=== PATIENT | female | born 1985 | race Caucasian/White ===

== ENCOUNTER 2018-06-07 18:36 | Emergency (ER) | payer SELFPAY ==
[~2018-06-07] VITALS: Ht 162.6 cm; Wt 65.9 kg
[2018-06-07 18:40] VITALS: Ht 162.6 cm; Wt 65.9 kg
[2018-06-07] MEDS ORDERED: NAPROSYN500 MG PO (21:24)
[2018-06-07] MEDS ORDERED: CYCLOBENZAPRINE10 MG PO (21:24)
[2018-06-07 21:51] VITALS: BP 100/77
== END 2018-06-07 21:52 | disposition home or self-care (01) ==
LOC: D.ER 18:36
DX: S06.0X9A Concussion with loss of consciousness of unspecified duration, initial encounter (principal); W10.9XXA Fall (on) (from) unspecified stairs and steps, initial encounter; Y93.89 Activity, other specified; Y92.019 Unspecified place in single-family (private) house as the place of occurrence of the external cause; S93.401A Sprain of unspecified ligament of right ankle, initial encounter; S16.1XXA Strain of muscle, fascia and tendon at neck level, initial encounter; R51 Headache; M25.562 Pain in left knee; M25.571 Pain in right ankle and joints of right foot

== ENCOUNTER 2018-06-13 01:49 | Emergency (ER) | payer BC ==
[~2018-06-13] VITALS: Ht 162.6 cm; Wt 63.6 kg
[~2018-06-13 01:49] MED LIST: CYCLOBENZAPRINE10 MG PO; NAPROSYN500 MG PO
[2018-06-13 01:52] VITALS: Ht 162.6 cm; Wt 63.6 kg
[2018-06-13] MEDS ORDERED: NORCO 7.5/325 T1 TA1 PO (02:18)
[2018-06-13 02:52] VITALS: BP 110/78
== END 2018-06-13 02:56 | disposition home or self-care (01) ==
LOC: D.ER 01:49
DX: S99.911A Unspecified injury of right ankle, initial encounter (principal); W10.9XXA Fall (on) (from) unspecified stairs and steps, initial encounter; Y93.89 Activity, other specified; Y92.019 Unspecified place in single-family (private) house as the place of occurrence of the external cause; M25.571 Pain in right ankle and joints of right foot

== ENCOUNTER 2018-10-12 16:58 | Inpatient (IN) | payer BC ==
[~2018-10-12] VITALS: Ht 162.6 cm; Wt 63.5 kg
[~2018-10-12 16:58] MED LIST changes: +NORCO 7.5/325 T1 TA1 PO
[2018-10-12 17:46] LABS: BASOPHILS 0.5 % (0-2); EOSINOPHILS 4.2 % (0-7); HEMATOCRIT 39.9 % (36.0-48.0); IMMATURE GRANULOCYTES 0.1 % (0-5); LYMPHOCYTES 29.2 % (15-50); MCH 31.5 pg (26.0-34.0); MCHC 35.1 g/dL (31.0-37.0); MCV 89.9 fL (80.0-100.0); MEAN PLATELET VOLUME 10.1 fL (7.4-10.4); MONOCYTES 6.5 % (2-11); NEUTROPHILS 59.5 % (40-80); PLATELET COUNT 258 10x3/uL (130-400); RBC 4.44 10x6/uL (4.00-5.40); RDW 12.5 % (11.5-14.5); WBC 7.6 10x3/uL (4.8-10.8)
[2018-10-12 18:30] LABS: ALBUMIN 3.7 g/dL (3.4-5.0); ALKALINE PHOSPHATASE 68 U/L (46-116); ALT (SGPT) 13 U/L (10-68); BILIRUBIN - TOTAL 0.63 mg/dL (0.2-1.3); CALC OSMOLALITY 273 mosm/kg (275-300); CALCIUM 9.1 mg/dL (8.5-10.1); CARBON DIOXIDE 25.2 mmol/L (21.0-32.0); CHLORIDE - SERUM 103 mmol/L (98-107); CREATININE - SERUM 0.7 mg/dL (0.6-1.3); GLUCOSE 96 mg/dL (74-106); POTASSIUM - SERUM 4.1 mmol/L (3.5-5.1); PROTEIN - SERUM 7.4 g/dL (6.4-8.2); SODIUM 138 mmol/L (136-145); UREA NITROGEN 6 mg/dL (7-18); eGFR NON AFRICAN AMERICAN > 90 mL/min (90-120)
[2018-10-12 18:45] LABS: AMYLASE - SERUM 64 U/L (25-115); CKMB 0.1 U/L (0.0-3.6); CREATINE KINASE 102 UL (21-215); LIPASE 70 U/L (73-393)
[2018-10-12 18:47] LABS: TROPONIN-I < 0.017 ng/mL (0.000-0.060)
[2018-10-12 19:01] LABS: APPEARANCE CLEAR (CLEAR); BILIRUBIN NEGATIVE (NEGATIVE); COLOR YELLOW (YELLOW); GLUCOSE NEGATIVE (NEGATIVE); KETONE NEGATIVE (NEGATIVE); NITRITE NEGATIVE (NEGATIVE); PROTEIN NEGATIVE (NEGATIVE); UROBILINOGEN NORMAL (NORMAL)
[2018-10-12 19:02] LABS: BACTERIA FEW /hpf (NONE SEEN); HCG URINE NEGATIVE (NEGATIVE); RED CELLS - URINE 0-5 /hpf (0-5); WHITE CELLS - URINE OCC /hpf (0-5)
--- NOTE | 2018-10-12 19:08 | NUR ---
PT REPORT RECEIVED FROM PEYTON MOLINA USING SBAR COMMUNICATION. NO ACUTE DISTRESS NOTED, DENIES ANY NEEDS AT PRESENT
[2018-10-12 21:38] LABS: BASOPHILS 0.4 % (0-2); EOSINOPHILS 2.5 % (0-7); HEMATOCRIT 38.7 % (36.0-48.0); HEMOGLOBIN 13.4 g/dL (12-16); IMMATURE GRANULOCYTES 0.1 % (0-5); LYMPHOCYTES 29.6 % (15-50); MCH 31.1 pg (26.0-34.0); MCHC 34.6 g/dL (31.0-37.0); MCV 89.8 fL (80.0-100.0); MEAN PLATELET VOLUME 10.1 fL (7.4-10.4); MONOCYTES 5.6 % (2-11); NEUTROPHILS 61.8 % (40-80); PLATELET COUNT 239 10x3/uL (130-400); RBC 4.31 10x6/uL (4.00-5.40); RDW 12.4 % (11.5-14.5)
[2018-10-12 21:42] LABS: WBC 10.9 10x3/uL (4.8-10.8)
--- NOTE | 2018-10-12 22:05 | NUR ---
PT TRANSPORTED WITH NS @ 100ML/HR, PROTONIX @ 10ML/HR
--- NOTE | 2018-10-12 23:30 | NUR ---
PT REPORTS MILD BURNING PAIN IN ABDOMEN. WARM PAD BROUGHT PER REQUEST.
[2018-10-12 23:47] VITALS: BP 122/81
[2018-10-13 00:53] VITALS: BP 122/81; BMI 24.0
[2018-10-13 04:00] VITALS: BP 128/82
[2018-10-13 04:57] LABS: BASOPHILS 0.5 % (0-2); EOSINOPHILS 3.5 % (0-7); HEMATOCRIT 37.2 % (36.0-48.0); HEMOGLOBIN 12.8 g/dL (12-16); IMMATURE GRANULOCYTES 0.1 % (0-5); LYMPHOCYTES 32.7 % (15-50); MCH 31.3 pg (26.0-34.0); MCHC 34.4 g/dL (31.0-37.0); MEAN PLATELET VOLUME 10.6 fL (7.4-10.4); MONOCYTES 8.1 % (2-11); NEUTROPHILS 55.1 % (40-80); PLATELET COUNT 207 10x3/uL (130-400); RBC 4.09 10x6/uL (4.00-5.40); RDW 12.5 % (11.5-14.5); WBC 10.9 10x3/uL (4.8-10.8)
[2018-10-13 05:05] LABS: INR 2.73 (0.85-1.17); PROTIME 28.2 SECONDS (11.6-15.0)
[2018-10-13 05:12] LABS: CALC OSMOLALITY 277 mosm/kg (275-300); CALCIUM 8.1 mg/dL (8.5-10.1); CARBON DIOXIDE 21.7 mmol/L (21.0-32.0); CHLORIDE - SERUM 107 mmol/L (98-107); CREATININE - SERUM 0.6 mg/dL (0.6-1.3); GLUCOSE 77 mg/dL (74-106); SODIUM 141 mmol/L (136-145); UREA NITROGEN 6 mg/dL (7-18); eGFR NON AFRICAN AMERICAN > 90 mL/min (90-120)
--- NOTE | 2018-10-13 07:35 | NUR ---
PT AAOX4 RESP EVEN AND NONLABORED, NO SIGNS OF DISTRESS NOTED, WILL CONTINUE TO MONITOR, CL IN REACH
[2018-10-13 08:37] VITALS: BP 100/60
[2018-10-13 10:24] VITALS: BMI 24.0
[2018-10-13 12:23] LABS: APTT 42.7 SECONDS (22.8-39.4); INR 2.87 (0.85-1.17); PROTIME 29.3 SECONDS (11.6-15.0)
[2018-10-13 12:26] VITALS: BP 110/62
--- NOTE | 2018-10-13 14:29 | MORECARE ---
CASE MANAGEMENT DISCHARGE SUMMARY PATIENT: DAKOTA PUCKTET UNIT: [id number] ADM DATE: 10/12/18 AGE: 33 : [birth year] SEX: F ROOM/BED: D.2201 AUTHOR: AP GUZMAN PHYSICIAN: REFERRING PHYSICIAN: ANGELINA WILLARD MD DATE OF SERVICE: 10/13/18 Discharge Plan Patient Name: DAKOTA PUCKETT Facility: [facility]:[place] : 1985 Planned Disposition: Anticipated Discharge Date: Discharge Date: Expected LOS: Initial Reviewer: [email or web address] Initial Review Date: 10/13/2018 Generated: 10/13/18 3:29 pm Patient Name: DAKOTA PUCKETT Page 28851 at 3643 All edits/amendments must be made on the electronic document DICTATION DATE: 10/13/18 1428 CITY DISTRIBUTION CLERK: EDD 10/13/18 1428 RPT#: [id number] DC DATE: STATUS: ADM IN [facility] [address] [place] [address] END OF REPORT
[2018-10-13 15:14] LABS: APTT 29.1 SECONDS (22.8-39.4); INR 1.19 (0.85-1.17); PROTIME 14.6 SECONDS (11.6-15.0)
[2018-10-13 16:26] LABS: % SATURATION 15 % (15-55); IRON 36 ug/dl (35-150); TOTAL IRON BIND CAPACITY 237 ug/dl (260-445); UNSAT IRON BIND CAPACITY 201 ug/dl (150-375)
--- NOTE | 2018-10-13 16:27 | NUR ---
RESTING QUIETLY IN BED. DENIES NEEDS.
[2018-10-13 16:39] LABS: CHOL - HDL RATIO 2.5 ratio (2.3-4.1); LDL-HDL RATIO 1.2 ratio (1.5-3.5); PRE-ALBUMIN 19.1 mg/dL (18.0-35.7)
[2018-10-13 17:21] VITALS: BP 129/67
[2018-10-13 20:00] VITALS: BP 106/60
--- NOTE | 2018-10-14 03:12 | NUR ---
A/OX4. BREATHING EVEN AND UNLABORED. AT BEDSIDE. DENIES NEEDS AT THIS TIME. WILL CONTINUE POC.
[2018-10-14 04:00] VITALS: BP 100/60
[2018-10-14 04:33] LABS: BASOPHILS 0.7 % (0-2); HEMOGLOBIN 11.5 g/dL (12-16); IMMATURE GRANULOCYTES 0.1 % (0-5); LYMPHOCYTES 36.4 % (15-50); MCH 31.3 pg (26.0-34.0); MCHC 34.8 g/dL (31.0-37.0); MCV 89.9 fL (80.0-100.0); MEAN PLATELET VOLUME 10.5 fL (7.4-10.4); MONOCYTES 8.8 % (2-11); PLATELET COUNT 200 10x3/uL (130-400); RBC 3.67 10x6/uL (4.00-5.40); RDW 12.5 % (11.5-14.5); WBC 8.7 10x3/uL (4.8-10.8)
[2018-10-14 04:48] LABS: INR 1.14 (0.85-1.17); PROTIME 14.1 SECONDS (11.6-15.0)
[2018-10-14 04:55] LABS: ALKALINE PHOSPHATASE 49 U/L (46-116); BILIRUBIN - TOTAL 0.19 mg/dL (0.2-1.3); CALCIUM 7.4 mg/dL (8.5-10.1); CARBON DIOXIDE 24.4 mmol/L (21.0-32.0); CHLORIDE - SERUM 109 mmol/L (98-107); CREATININE - SERUM 0.6 mg/dL (0.6-1.3); GLUCOSE 93 mg/dL (74-106); POTASSIUM - SERUM 3.8 mmol/L (3.5-5.1); SODIUM 141 mmol/L (136-145); eGFR NON AFRICAN AMERICAN > 90 mL/min (90-120)
[2018-10-14 05:14] LABS: ALBUMIN 2.6 g/dL (3.4-5.0); ALT (SGPT) 9 U/L (10-68); CALC OSMOLALITY 279 mosm/kg (275-300); PROTEIN - SERUM 5.4 g/dL (6.4-8.2); UREA NITROGEN 9 mg/dL (7-18)
[2018-10-14 08:00] VITALS: BP 108/70
--- NOTE | 2018-10-14 11:14 | MORECARE ---
CASE MANAGEMENT DISCHARGE SUMMARY PATIENT: DAKOTA PUCKETT UNIT: [id number] ADM DATE: 10/12/18 AGE: 33 : [birth year] SEX: F ROOM/BED: D.2201 AUTHOR: AP GUZMAN PHYSICIAN: REFERRING PHYSICIAN: ANGELINA WILLARD MD DATE OF SERVICE: 10/14/18 Discharge Plan Patient Name: DAKOTA PUCKETT Facility: [facility]:[place] : 1985 Planned Disposition: Home Anticipated Discharge Date: Discharge Date: Expected LOS: Initial Reviewer: [email or web address] Initial Review Date: 10/13/2018 Generated: 10/14/18 12:14 pm Comments DCP- Discharge Planning Updated by [email or web address]: Dayna Jones on 10/14/18 10:[address] Patient Name: DAKOTA PUCKETT Admission Status: ER Accout number: [id number] Admission Date: 10-12-2018 : 1985 Admission Diagnosis: Attending: ANGELINA WILLARD Current LOS: 2 Anticipated DC Date: Planned Disposition: Home Primary Insurance: [employer] [facility] Discharge Planning Comments: CM MET WITH PATIENT REGARDING DC PLANNING/NEEDS. PATIENT STATES IS NORMALLY IN GOOD HEALTH, DENIES ANY NEEDS AT THIS TIME. CM WILL FOLLOW AND ASSIST NEEDED WITH DC PLANNING/NEEDS. Money Market Dealer: Dayna Jones DCPIA - Discharge Planning Initial Assessment Updated by [email or web address]: Dayna Jones on 10/14/18 11:12 am * Is the patient Alert and Oriented? Yes * PCP JOCELYNE * Pharmacy [facility] [address] OR [facility] * Preadmission Environment Home with Family * ADLs Independent * Equipment None * List name and contact numbers for known caregivers / representatives who currently or will assist patient after discharge: MATEO, , * Community resources currently utilized None * Additional services required to return to the preadmission environment? No * Can the patient safely return to the preadmission environment? Yes * Has this patient been hospitalized within the prior 30 days at any hospital? No Last DP export: 10/13/18 1:29 pm Patient Name: DAKOTA PUCKETT Page [id number] at 1114 All edits/amendments must be made on the electronic document DICTATION DATE: 10/14/181113 CLOTHES WRINGER: EDD 10/14/18 1114 RPT#: [id number] DC DATE: STATUS: ADM IN [facility] [address] [place] [address] END OF REPORT
[2018-10-14 12:00] VITALS: BP 103/67
[2018-10-14 12:53] VITALS: Ht 162.6 cm; Wt 63.5 kg
--- NOTE | 2018-10-14 13:20 | NUR ---
A/O X4. RESTING QUIETLY IN BED. LIGHTS OFF, EYES OPEN. RESPIRATIONS EVEN AND UNLABORED. NO SIGNS OF DISTRESS NOTED. NO COMPLAINTS VOICED. CALL LIGHT AND BEDSIDE TABLE IN REACH. BED IN LOWEST POSITION. ROOM FREE OF CLUTTER. WILL CONTINUE TO MONITOR.
[2018-10-14] MEDS ORDERED: HYDROCODON-ACE1 EAC7 PO (14:40)
[2018-10-14] MEDS ORDERED: PROTONIX20 MG PO (14:41)
[2018-10-15 07:21] LABS: HEPATITIS C ANTIBODY <0.1 S/CO RAT (0.0-0.9)
[2018-10-15 12:10] LABS: ALPHA FETOPROTEIN -(TUMOR MRK) 0.9 ng/mL (0.0-8.3); EBV - EARLY ANTIGEN AB IGG <9.0 U/mL (0.0-8.9); EBV - NUCLEAR ANTIGEN AB IGG >600.0 U/mL (0.0-17.9); EBV VIRAL CAPSID AB IGG >600.0 U/mL (0.0-17.9); EBV VIRAL CAPSID AB IGM <36.0 U/mL (0.0-35.9)
[2018-10-17 12:11] LABS: SMOOTH MUSCLE ABS (ACTIN) 13 Units (0-19)
--- NOTE | 2018-10-17 12:55 | MORECARE ---
CASE MANAGEMENT DISCHARGE SUMMARY PATIENT: DAKOTA PUCKETT UNIT: [id number] ADM DATE: 10/12/18 AGE: 33 : 83 SEX: F ROOM/BED: D.2201 AUTHOR: AP GUZMAN PHYSICIAN: REFERRING PHYSICIAN: ANGELINA WILLARD MD DATE OF SERVICE: 10/17/18 Discharge Plan Patient Name: DAKOTA PUCKETT Facility: [facility]:[place] : 1985 Planned Disposition: Home Anticipated Discharge Date: Discharge Date: 10/14/2018 Expected LOS: Initial Reviewer: [email or web address] Initial Review Date: 10/13/2018 Generated: 10/17/18 1:55 pm Comments DCP- Discharge Planning Updated by [email or web address]: Dayna Jones on 10/14/18 10:[address] Patient Name: DAKOTA PUCKETT Admission Status: ER Accout number: [id number] Admission Date: 10-12-2018 : 1985 Admission Diagnosis: Attending: ANGELINA WILLARD Current LOS: 2 Anticipated DC Date: Planned Disposition: Home Primary Insurance: [employer] [facility] Discharge Planning Comments: CM MET WITH PATIENT REGARDING DC PLANNING/NEEDS. PATIENT STATES IS NORMALLY IN GOOD HEALTH, DENIES ANY NEEDS AT THIS TIME. CM WILL FOLLOW AND ASSIST NEEDED WITH DC PLANNING/NEEDS. Plush Weaver: Dayna Jones DCPIA - Discharge Planning Initial Assessment Updated by [email or web address]: Dayna Jones on 10/14/18 11:12 am * Is the patient Alert and Oriented? Yes * PCP JOCELYNE * Pharmacy [facility] [address] OR [facility] * Preadmission Environment Home with Family * ADLs Independent * Equipment None * List name and contact numbers for known caregivers / representatives who currently or will assist patient after discharge: MATEO, , * Community resources currently utilized None * Additional services required to return to the preadmission environment? No * Can the patient safely return to the preadmission environment? Yes * Has this patient been hospitalized within the prior 30 days at any hospital? No Last DP export: 10/14/18 10:14 am Patient Name: DAKOTA PUCKETT Page 00284 at 1255 All edits/amendments must be made on the electronic document DICTATION DATE: 10/17/18 1255 PORTABLE SAWMILL OPERATOR: EDD 10/17/18 1255 RPT#: [id number] DC DATE:10/14/18 STATUS: DIS IN [facility] [address] [place] [address] END OF REPORT
[2018-10-17 13:13] LABS: HELICOBACTER PYLORI IGM AB <9.0 units (0.0-8.9)
== END 2018-10-14 15:33 | disposition home or self-care (01) | DRG 384 ==
LOC: D.ER 16:58 → D.MS 21:24 → D.EDHOLD 21:24 → D.MS 21:33
PROVIDERS: Family Medicine; Internal Medicine Gastroenterology; ADMIT Internal Medicine Nephrology
PROC: 0DJ08ZZ Inspection of Upper Intestinal Tract, Via Natural or Artificial Opening Endoscopic (ICD-10-PCS; principal; 2018-10-13 12:30)
DX: K26.9 Duodenal ulcer, unspecified as acute or chronic, without hemorrhage or perforation (principal); K92.0 Hematemesis; K20.9 Esophagitis, unspecified; K29.70 Gastritis, unspecified, without bleeding; K29.80 Duodenitis without bleeding; E61.1 Iron deficiency; Z87.891 Personal history of nicotine dependence

== ENCOUNTER 2019-05-02 18:06 | Emergency (ER) | payer BC ==
[~2019-05-02] VITALS: Ht 162.6 cm; Wt 61.4 kg
[~2019-05-02 18:06] MED LIST changes: +HYDROCODON-ACE1 EAC7 PO; +PROTONIX20 MG PO
[2019-05-02 18:09] VITALS: Ht 162.6 cm; Wt 61.4 kg
[2019-05-02] MEDS ORDERED: ZYRTEC10 MG PO (18:12)
[2019-05-02 19:09] LABS: BASOPHILS 0.6 % (0-2); EOSINOPHILS 3.6 % (0-7); HEMATOCRIT 37.5 % (36.0-48.0); HEMOGLOBIN 13.4 g/dL (12-16); IMMATURE GRANULOCYTES 0.2 % (0-5); LYMPHOCYTES 29.6 % (15-50); MCH 31.8 pg (26.0-34.0); MCHC 35.7 g/dL (31.0-37.0); MCV 89.1 fL (80.0-100.0); MEAN PLATELET VOLUME 9.9 fL (7.4-10.4); MONOCYTES 7.6 % (2-11); NEUTROPHILS 58.4 % (40-80); RBC 4.21 10x6/uL (4.00-5.40); RDW 12.3 % (11.5-14.5); WBC 8.7 10x3/uL (4.8-10.8)
[2019-05-02 19:11] LABS: APPEARANCE CLEAR (CLEAR); BILIRUBIN NEGATIVE (NEGATIVE); COLOR YELLOW (YELLOW); GLUCOSE NEGATIVE (NEGATIVE); KETONE NEGATIVE (NEGATIVE); NITRITE NEGATIVE (NEGATIVE); PLATELET COUNT 246 10x3/uL (130-400); PROTEIN NEGATIVE (NEGATIVE); UROBILINOGEN NORMAL (NORMAL)
[2019-05-02 19:22] LABS: APTT 26.1 SECONDS (22.8-39.4); INR 1.12 (0.85-1.17); PROTIME 13.9 SECONDS (11.6-15.0)
[2019-05-02 19:30] LABS: ALBUMIN 3.5 g/dL (3.4-5.0); ALKALINE PHOSPHATASE 67 U/L (46-116); ALT (SGPT) 11 U/L (10-68); BILIRUBIN - TOTAL 0.65 mg/dL (0.2-1.3); CALC OSMOLALITY 276 mosm/kg (275-300); CALCIUM 8.4 mg/dL (8.5-10.1); CARBON DIOXIDE 27.1 mmol/L (21.0-32.0); CHLORIDE - SERUM 105 mmol/L (98-107); CREATININE - SERUM 0.7 mg/dL (0.6-1.3); GLUCOSE 87 mg/dL (74-106); POTASSIUM - SERUM 3.7 mmol/L (3.5-5.1); PROTEIN - SERUM 6.6 g/dL (6.4-8.2); SODIUM 140 mmol/L (136-145); UREA NITROGEN 10 mg/dL (7-18); eGFR NON AFRICAN AMERICAN > 90 mL/min (90-120)
[2019-05-02 19:35] LABS: AMYLASE - SERUM 68 U/L (25-115); LIPASE 64 U/L (73-393); TROPONIN-I < 0.017 ng/mL (0.000-0.060)
[2019-05-02 23:10] VITALS: BP 123/74
== END 2019-05-02 23:11 | disposition home or self-care (01) ==
LOC: D.ER 18:06
PROVIDERS: Family Medicine
DX: K92.0 Hematemesis (principal)